=== PATIENT | male | born 1965 | race American Indian/Alaskan Native ===

== ENCOUNTER → 2022-07-22 13:23 | Outpatient (CLI) | payer MEDICARE, SELFPAY ==
--- NOTE | 2022-07-22 13:34 | DI.RAD.S_ITS ---
PROCEDURE: XR KNEE LT 3V INDICATIONS: PAIN IN LEFT KNEE TECHNIQUE: 3 views of the knee were acquired. COMPARISON: None. FINDINGS: Bones: No fractures or dislocations. No suspicious bony lesions. Moderate left knee tricompartmental osteoarthritic degenerative change. Soft tissues: No joint effusion. No suspicious soft tissue calcifications. IMPRESSION: Left knee moderate tricompartmental osteoarthritis. Dictated by: Rebeca Cervantes MD, PhD on 07/22/2022 at 14:41 Approved by: Rebeca Cervantes MD, PhD on 07/22/2022 at 14:41
--- NOTE | 2022-07-22 13:35 | DI.RAD.S_ITS ---
PROCEDURE: XR KNEE RT 3V INDICATIONS: PAIN IN KNEE TECHNIQUE: 3 views of the knee were acquired. COMPARISON: None. FINDINGS: Bones: No fractures or dislocations. No suspicious bony lesions. Mild tricompartmental osteoarthritic degenerative change. Soft tissues: No joint effusion. No suspicious soft tissue calcifications. IMPRESSION: Mild right knee tricompartmental osteoarthritis. Dictated by: Rebeca Cervantes MD, PhD on 07/22/2022 at 14:41 Approved by: Rebeca Cervantes MD, PhD on 07/22/2022 at 14:42
== END ==
PROVIDERS: Referring Provider Family Medicine; Visit Provider Family Medicine
DX: M25.562 Pain in left knee (principal); M17.0 Bilateral primary osteoarthritis of knee
CPT/HCPCS: 73562

== ENCOUNTER → 2023-03-20 09:10 | Outpatient (CLI) | payer MEDICARE, MEDICAID, SELFPAY ==
--- NOTE | 2023-03-20 | DI.RAD.S_ITS ---
PROCEDURE: XR HIP W PEL IF DONE BILAT 2V INDICATIONS: Presence of right artificial hip joint TECHNIQUE: AP pelvis with lateral view(s) of the bilateral hip(s). COMPARISON: CR, HIP COMP MIN 2VW (LT), 08/08/2014, 13:31. CR, HIP COMP MIN 2VW (RT), 08/08/2014, 13:31. FINDINGS: Bones: No fractures or dislocations. Pelvic ring appears intact. No suspicious bony lesions. Right hip arthroplasty is present. Hardware appears intact without evidence of hardware fracture or periprosthetic lucency to suggest loosening. Moderate left hip arthritic change, minimally progressive compared to 2013. SI joint fusion is present. Soft tissues: The visualized bowel gas pattern is normal. No suspicious soft tissue calcifications. IMPRESSION: Stable appearance of right hip arthroplasty and left hip arthritic change. Dictated by: Lynnette Rossi M.D. on 03/20/2023 at 12:53 Approved by: Lynnette Rossi M.D. on 03/20/2023 at 12:55
== END ==
PROVIDERS: Referring Provider Family Medicine; Visit Provider Family Medicine
DX: Z96.641 Presence of right artificial hip joint (principal); Z09 Encounter for follow-up examination after completed treatment for conditions other than malignant neoplasm
CPT/HCPCS: 73521

== ENCOUNTER → 2023-11-06 11:08 | Outpatient (CLI) | payer MEDICARE, MEDICAID, OTHER, SELFPAY ==
--- NOTE | 2023-11-06 11:14 | DI.RAD.S_ITS ---
PROCEDURE: XR CHEST 2V INDICATIONS: CHRONIC COUGH TECHNIQUE: 2 views of the chest were acquired. COMPARISON: [facility], , CHEST 2 VIEW, 11/23/2013, 2:42. FINDINGS: Surgical changes and devices: Surgical fusion of the cervical thoracic spine. Lungs and pleura: Lungs are clear. No pleural effusions or pneumothorax. Mediastinum: Mediastinal contours are normal. Heart size is normal. Bones and chest wall: No suspicious bony abnormalities. Soft tissues appear unremarkable. Diffuse idiopathic skeletal hyperostosis. IMPRESSION: No acute cardiopulmonary abnormality is seen. Dictated by: Royer Cates M.D. on 11/06/2023 at 14:49 Approved by: Royer Cates M.D. on 11/06/2023 at 14:50
== END ==
PROVIDERS: Referring Provider Family Medicine; Visit Provider Family Medicine
DX: R05.3 Chronic cough (principal)
CPT/HCPCS: 71046

== ENCOUNTER → 2024-02-25 15:51 | Outpatient (CLI) | payer MEDICARE, MEDICAID, SELFPAY ==
--- NOTE | 2024-02-25 15:54 | DI.US.S_ITS ---
PROCEDURE: US ABDOMEN LIMITED INDICATIONS: Other intra-abdominal and pelvic swelling, mass an TECHNIQUE: Real-time focused scanning was performed of the abdomen, with image documentation. COMPARISON: None. FINDINGS: There is a right pubic region hernia seen, which appears to contain fat and changes with Valsalva maneuver. There are knee a defect measures between 1.5 and 2.4 cm. IMPRESSION: Fat containing right pubic region hernia seen. Surgical consultation is recommended. If it would be helpful for clinical management decision making in this patient with this given history, please consider a dedicated CT of at least the pelvis with at least IV contrast for further evaluation. Dictated by: Dirk Choudhury M.D. on 02/25/2024 at 16:53 Approved by: Dirk Choudhury M.D. on 02/25/2024 at 16:54
== END ==
PROVIDERS: Referring Provider Nurse Practitioner Family; Visit Provider Nurse Practitioner Family
DX: K46.9 Unspecified abdominal hernia without obstruction or gangrene (principal); R19.09 Other intra-abdominal and pelvic swelling, mass and lump
CPT/HCPCS: 76705